=== PATIENT | male | born 1975 ===

== ENCOUNTER 2025-04-13 09:27 | Outpatient (AMB) | payer OTHER, SELFPAY | END 2025-04-13 14:31 | disposition home or self-care (01) | LOC: HO.HMGAL 09:27 | PROVIDERS: PCP Internal Medicine; Visit Provider Registered Nurse Emergency | DX: J30.89 Other allergic rhinitis (principal) | CPT/HCPCS: 95117; 95165 ==

== ENCOUNTER 2025-04-27 08:11 | Outpatient (AMB) | payer OTHER, SELFPAY | END 2025-04-27 08:13 | disposition home or self-care (01) | LOC: HO.HMGAL 08:11 | PROVIDERS: PCP Internal Medicine; Visit Provider Registered Nurse Emergency | DX: J30.89 Other allergic rhinitis (principal) | CPT/HCPCS: 95117; 95165 ==

== ENCOUNTER 2025-05-04 08:26 | Outpatient (AMB) | payer OTHER, SELFPAY | END 2025-05-04 08:32 | disposition home or self-care (01) | LOC: HO.HMGAL 08:26 | PROVIDERS: PCP Internal Medicine; Visit Provider Registered Nurse Emergency | DX: J30.89 Other allergic rhinitis (principal) | CPT/HCPCS: 95117; 95165 ==

== ENCOUNTER 2025-05-11 08:30 | Outpatient (AMB) | payer OTHER, SELFPAY | END 2025-05-11 08:38 | disposition home or self-care (01) | LOC: HO.HMGAL 08:30 | PROVIDERS: PCP Internal Medicine; Visit Provider Registered Nurse Emergency | DX: J30.89 Other allergic rhinitis (principal) | CPT/HCPCS: 95117; 95165 ==

== ENCOUNTER 2025-05-25 08:20 | Outpatient (AMB) | payer OTHER, SELFPAY | END 2025-05-25 09:00 | disposition home or self-care (01) | LOC: HO.HMGAL 08:20 | PROVIDERS: PCP Internal Medicine; Visit Provider Registered Nurse Emergency | DX: J30.89 Other allergic rhinitis (principal) | CPT/HCPCS: 95117; 95165 ==

== ENCOUNTER 2025-06-08 09:16 | Outpatient (AMB) | payer OTHER, SELFPAY | END 2025-06-08 09:16 | disposition home or self-care (01) | LOC: HO.HMGAL 09:16 | PROVIDERS: PCP Internal Medicine; Visit Provider Registered Nurse Emergency | DX: J30.89 Other allergic rhinitis (principal) | CPT/HCPCS: 95117; 95165 ==

== ENCOUNTER 2025-06-15 10:45 | Outpatient (AMB) | payer OTHER, SELFPAY | END 2025-06-15 10:45 | disposition home or self-care (01) | LOC: HO.HMGAL 10:45 | PROVIDERS: PCP Internal Medicine; Visit Provider Registered Nurse Emergency | DX: J30.89 Other allergic rhinitis (principal) | CPT/HCPCS: 95117; 95165 ==

== ENCOUNTER 2025-06-22 08:23 | Outpatient (AMB) | payer OTHER, SELFPAY | END 2025-06-22 08:31 | disposition home or self-care (01) | LOC: HO.HMGAL 08:23 | PROVIDERS: PCP Internal Medicine; Visit Provider Registered Nurse Emergency | DX: J30.89 Other allergic rhinitis (principal) | CPT/HCPCS: 95117; 95165 ==

== ENCOUNTER 2025-07-06 08:14 | Outpatient (AMB) | payer OTHER, SELFPAY | END 2025-07-06 08:19 | disposition home or self-care (01) | LOC: HO.HMGAL 08:14 | PROVIDERS: PCP Internal Medicine; Visit Provider Registered Nurse Emergency | DX: J30.89 Other allergic rhinitis (principal) | CPT/HCPCS: 95117; 95165 ==

== ENCOUNTER 2025-07-20 08:37 | Outpatient (AMB) | payer OTHER, SELFPAY | END 2025-07-20 08:38 | disposition home or self-care (01) | LOC: HO.HMGAL 08:37 | PROVIDERS: PCP Internal Medicine; Visit Provider Registered Nurse Emergency | DX: J30.89 Other allergic rhinitis (principal) | CPT/HCPCS: 95117; 95165 ==

== ENCOUNTER 2025-08-03 08:36 | Outpatient (AMB) | payer OTHER, SELFPAY | END 2025-08-03 08:37 | disposition home or self-care (01) | LOC: HO.HMGAL 08:36 | PROVIDERS: PCP Physician Assistant Medical; Visit Provider Registered Nurse Emergency | DX: J30.89 Other allergic rhinitis (principal) | CPT/HCPCS: 95117; 95165 ==

== ENCOUNTER 2025-08-10 08:13 | Outpatient (AMB) | payer OTHER, SELFPAY | END 2025-08-10 08:23 | disposition home or self-care (01) | LOC: HO.HMGAL 08:13 | PROVIDERS: PCP Physician Assistant Medical; Visit Provider Registered Nurse Emergency | DX: J30.89 Other allergic rhinitis (principal) | CPT/HCPCS: 95117; 95165 ==